=== PATIENT | female | born 1985 | race Caucasian/White ===

== ENCOUNTER 2018-02-28 09:08 | Observation (INO) | payer OTHER ==
[~2018-02-28] VITALS: Ht 165 cm; Wt 84.8 kg
[2018-02-28 09:38] VITALS: BP 130/71
== END 2018-02-28 11:10 | disposition home or self-care (01) ==
LOC: 4S 09:08
PROVIDERS: ADMIT Obstetrics & Gynecology; ATTEND Obstetrics & Gynecology
DX: O48.0 Post-term pregnancy (principal); Z3A.40 40 weeks gestation of pregnancy
CPT/HCPCS: 59025; G0378

== ENCOUNTER 2018-03-01 08:20 | Inpatient (IN) | payer OTHER ==
[~2018-03-01] VITALS: Ht 165 cm; Wt 84.4 kg
[2018-03-01 08:39] VITALS: BP 124/76
[2018-03-01] MEDS ORDERED: RINGERS SOLUTION,LACTATED 1,000 ML IV PRN (10:07)
[2018-03-01] MEDS ORDERED: CITRIC ACID/SODIUM CITRATE 30 ML SOLUTION UDCUP PO PRN (10:15)
[2018-03-01] MEDS ORDERED: FentaNYL CITRATE-PF 100 MCG/2 ML VIAL IVP PRN (10:15)
[2018-03-01] MEDS ORDERED: OXYTOCIN 20 UNITS/LACT RINGERS 1,000 ML IV PRN (10:15)
[2018-03-01] MEDS ORDERED: METHYLERGONOVINE MALEATE 0.2 MG/ML VIAL IM PRN (10:15)
[2018-03-01] MEDS ORDERED: METOCLOPRAMIDE HCL 5 MG/ML 2 ML VIAL IVP PRN (10:15)
[2018-03-01] MEDS ORDERED: OXYGEN THERAPY IH SCH (10:15)
[2018-03-01] MEDS ORDERED: LIDOCAINE HCL/PF 1% 30 ML VIAL INJ PRN (10:15)
[2018-03-01 10:42] LABS: BASOPHILS % (AUTO) 1.1 % (0.0-2.0); EOSINOPHILS % (AUTO) 0.5 % (1.0-6.0); HEMATOCRIT 39.1 % (36-46); HEMOGLOBIN 13.7 g/dL (12.0-16.0); LYMPHOCYTES # (AUTO) 1.7 K/uL (1.0-4.8); LYMPHOCYTES % (AUTO) 16.7 % (22.0-44.0); MEAN CORPUSCULAR HEMOGLOBIN 31.4 pg (26.0-34.0); MEAN CORPUSCULAR HGB CONC 34.9 G/dL (31.0-37.0); MEAN CORPUSCULAR VOLUME 90 fL (80-100); MONOCYTES # (AUTO) 0.4 K/uL (0.1-1.0); MONOCYTES % (AUTO) 4.1 % (2.0-9.0); NEUTROPHILS # (AUTO) 7.9 K/uL (1.8-7.7); NEUTROPHILS % (AUTO) 77.6 % (40.0-70.0); PLATELET COUNT (AUTO)-OB 261 K/uL (150-450); RED BLOOD CELL COUNT(AUTO) 4.34 MIL/uL (4.00-5.20); RED CELL DISTRIBUTION WIDTH 14.3 % (11.5-14.5)
[2018-03-01] MEDS ORDERED: MISOPROSTOL 25 MCG TABLET VG ONE (10:45)
[2018-03-01] MEDS ORDERED: AMPICILLIN SODIUM 2 GM/NS 100 ML IV ONE (10:45)
[2018-03-01] MEDS: RINGERS SOLUTION,LACTATED 1,000 ML IV SCH ×2 (10:52→18:42)
[2018-03-01] MEDS: AMPICILLIN SODIUM 1 GM/NS 50 ML IV SCH ×3 (14:46→23:10)
[2018-03-01] MEDS ORDERED: OXYTOCIN 30 UNITS/LACT RINGERS 500 ML IV PRN (18:54)
[2018-03-01] MEDS ORDERED: ROPIVACAINE HCL/PF 0.2% 100 ML ED ONE (20:23)
[2018-03-01] MEDS ORDERED: LIDOCAINE HCL/PF 2% 5 ML VIAL ONE (20:23)
[2018-03-01] MEDS ORDERED: ONDANSETRON HCL 4 MG/2 ML VIAL IVP PRN (20:45)
[2018-03-01] MEDS ORDERED: FentaNYL/BUPIV 0.125%/NS/PF 200 ML ED PRN (20:45)
[2018-03-01] MEDS ORDERED: NALBUPHINE HCL 10 MG/ML VIAL IVP PRN (20:45)
[2018-03-01] MEDS ORDERED: DiphenhydrAMINE HCL 50 MG/ML VIAL IVP PRN (20:45)
[2018-03-02] MEDS: AMPICILLIN SODIUM 1 GM/NS 50 ML IV SCH ×2 (03:22→06:58)
[2018-03-02] MEDS ORDERED: ROPIVACAINE HCL/PF 0.2% 100 ML ED ONE ×2 (04:20→10:17)
[2018-03-02] MEDS: RINGERS SOLUTION,LACTATED 1,000 ML IV SCH (06:58)
[2018-03-02] MEDS ORDERED: RINGERS SOLUTION,LACTATED 1,000 ML IV ONE (14:04)
[2018-03-02] MEDS ORDERED: BENZOCAINE 20%/MENTHOL 56 GM SPRAY CANISTER TP PRN (14:15)
[2018-03-02] MEDS ORDERED: MAGNESIUM HYDROXIDE SUSPENSION 30 ML UDCUP PO SCH (14:15)
[2018-03-02] MEDS ORDERED: LANOLIN 7 GM OINTMENT TP PRN (14:15)
[2018-03-02] MEDS ORDERED: OxyCODONE HCL/ACETAMINOPHEN 5-325 MG TABLET PO PRN ×2 (14:15)
[2018-03-02] MEDS ORDERED: GLYCERIN/WITCH HAZEL LEAF 40 PADS JAR TP PRN (14:15)
[2018-03-02] MEDS: IBUPROFEN 600 MG TABLET PO PRN (21:06)
[2018-03-03] MEDS: IBUPROFEN 600 MG TABLET PO PRN (04:37)
[2018-03-03] MEDS ORDERED: HYDROCORTISONE 25 MG RECTAL SUPPOSITORY PR SCH (09:00)
[2018-03-03] MEDS ORDERED: IBUP-2071 PO (11:10)
[2018-03-03] MEDS ORDERED: DSS100 PO (11:11)
== END 2018-03-03 12:05 | disposition home or self-care (01) | DRG 775 ==
LOC: 4S 08:20 → OBSVTOIN 08:20
PROVIDERS: ADMIT Obstetrics & Gynecology; ATTEND Obstetrics & Gynecology
PROC: 10E0XZZ Delivery of Products of Conception, External Approach (ICD-10-PCS; principal; 2018-03-02)
PROC: 0KQM0ZZ Repair Perineum Muscle, Open Approach (ICD-10-PCS; 2018-03-02)
PROC: 3E0R3BZ Introduction of Anesthetic Agent into Spinal Canal, Percutaneous Approach (ICD-10-PCS; 2018-03-02)
PROC: 00HU33Z Insertion of Infusion Device into Spinal Canal, Percutaneous Approach (ICD-10-PCS; 2018-03-02)
DX: O99.824 Streptococcus B carrier state complicating childbirth (principal); O70.1 Second degree perineal laceration during delivery; O77.0 Labor and delivery complicated by meconium in amniotic fluid; Z3A.40 40 weeks gestation of pregnancy; Z37.0 Single live birth
CPT/HCPCS: 86850; 86900; 86901; 89060; J0290; J2590; J2795; J3490; J7120